=== PATIENT | male | born 1985 | race Caucasian/White ===

== ENCOUNTER → 2021-09-14 | Day surgery (SDC) | payer OTHER ==
[~2021-09-14] VITALS: Ht 180.3 cm; Wt 104.8 kg
[~2021-09-14] MED LIST: HYDROCODON-ACE1 EAC6 PO; HYDROXYZINE HCL25 MG PO; IBUPROFEN800 MG PO; LAMICTAL200 MG PO; PROZAC40 MG PO; XANAX0.5 MG PO
== END | disposition home or self-care (01) ==
LOC: OR 05:23
DX: S43.431A Superior glenoid labrum lesion of right shoulder, initial encounter (principal); M75.41 Impingement syndrome of right shoulder; M75.51 Bursitis of right shoulder; M75.111 Incomplete rotator cuff tear or rupture of right shoulder, not specified as traumatic; W20.8XXA Other cause of strike by thrown, projected or falling object, initial encounter; M51.36 Other intervertebral disc degeneration, lumbar region; F41.9 Anxiety disorder, unspecified; F32.A Depression, unspecified; Z79.1 Long term (current) use of non-steroidal anti-inflammatories (NSAID); Z79.899 Other long term (current) drug therapy; Z97.0 Presence of artificial eye
CPT/HCPCS: C1713; J0171; J0690; J1100; J2001; J2250; J2370; J2405; J2704; J2795; J3010; J7120